=== PATIENT | female | born 1940 | race Hispanic/Latino ===

== ENCOUNTER 2022-03-31 22:32 | Emergency (ER) | payer OTHER ==
[~2022-03-31] VITALS: Ht 157.5 cm; Wt 61.2 kg
[2022-03-31 23:18] LABS: BASOPHILS % 0.2 % (0.0-1.0); HEMATOCRIT 34.5 % (34.2-44.1); HEMOGLOBIN 10.1 g/dL (12.0-16.0); LYMPHOCYTES # (AUTO) 1.2 (1.0-3.2); LYMPHOCYTES % 22.5 % (18.0-39.1); MEAN CORPUSCULAR HEMOGLOBIN 25.6 pg (28-32); MEAN CORPUSCULAR HGB CONC 29.3 g/dL (31-35); MEAN CORPUSCULAR VOLUME 87.6 fL (81-99); MONOCYTES # (AUTO) 0.1 (0.2-0.8); MONOCYTES % 2.6 % (4.4-11.3); NEUTROPHILS # (AUTO) 3.9 (2.1-6.9); NEUTROPHILS % 73.9 % (38.7-80.0); PLATELET COUNT 167 x10e3/uL (140-360); RED BLOOD COUNT 3.94 x10e6/uL (3.6-5.1); RED CELL DISTRIBUTION WIDTH 17.8 % (11.7-14.4)
[2022-03-31] MEDS ORDERED: CEFTRIAXONE 1 GM VIAL ONE (23:29)
[2022-03-31] MEDS: SODIUM CHLORIDE 0.9% 1000ML 1,000 ML IV ONE (23:29)
[2022-03-31 23:33] LABS: ALBUMIN 2.5 g/dL (3.5-5.0); ALBUMIN/GLOBULIN RATIO 1.1 (0.8-2.0); ANION GAP 14.9 mmol/L (8-16); CALCIUM 7.4 mg/dL (8.4-10.2); CREATININE, SERUM 0.83 mg/dL (0.57-1.11)
[2022-03-31 23:36] LABS: POTASSIUM 2.9 mmol/L (3.5-5.1)
[2022-03-31] MEDS: ONDANSETRON HCL INJ 2MG/ML 2ML 2 MG/ML VIAL IV STA (23:36)
[2022-03-31 23:39] LABS: CREATINE KINASE MB 0.2 ng/mL (0-5.0)
[2022-04-01] MEDS: ACETAMINOPHEN 325 MG TAB PO ONE (00:05)
[2022-04-01 00:24] LABS: BACTERIA,URINE MODERATE /HPF; CLARITY,URINE CLOUDY (CLEAR); COLOR,URINE YELLOW (YELLOW); EPITHELIAL CELLS,URINE FEW /LPF; KETONES,URINE NEGATIVE (NEGATIVE); LEUKOCYTE ESTERASE ,URINE 2+ (NEGATIVE); MUCUS,URINE FEW (RARE); NITRITE,URINE NEGATIVE (NEGATIVE); PROTEIN,URINE DIPSTICK 1+ (NEGATIVE); RBC,URINE 21-50 /HPF (0-5); URINE UROBILINOGEN 0.2 mg/dL (0.2 - 1); WBC,URINE (MAN) >50 /HPF (0-5)
[2022-04-01] MEDS ORDERED: POTASSIUM CHLORIDE 20 MEQ TAB CR PO STA (00:45)
[2022-04-01] MEDS ORDERED: CEFDINIR300 MG PO (00:46)
[2022-04-01] MEDS ORDERED: ONDANSETRON ODT4 MG PO (00:46)
== END 2022-04-01 01:04 | disposition home or self-care (01) ==
LOC: ER 22:35
DX: R50.9 Fever, unspecified (principal); N39.0 Urinary tract infection, site not specified; R11.2 Nausea with vomiting, unspecified; R19.7 Diarrhea, unspecified; Z20.822 Contact with and (suspected) exposure to COVID-19; Z85.3 Personal history of malignant neoplasm of breast; Z79.899 Other long term (current) drug therapy; C78.00 Secondary malignant neoplasm of unspecified lung; C79.51 Secondary malignant neoplasm of bone; R94.31 Abnormal electrocardiogram [ECG] [EKG]
CPT/HCPCS: 36415; 70450; 71045; 80053; 81001; 82550; 82553; 83605; 84484; 85025; 87040; 87071; 87086; 87186; 87205; 93005; 99284; J0696; J2405; J7030; U0002

== ENCOUNTER 2022-11-01 17:12 | Inpatient (IN) | payer MEDICARE, OTHER ==
[~2022-11-01] VITALS: Ht 157.5 cm; Wt 61.2 kg
[~2022-11-01 17:12] MED LIST: CEFDINIR300 MG PO; ONDANSETRON ODT4 MG PO
[2022-11-01 19:18] LABS: BASOPHILS % 0.2 % (0.0-1.0); EOSINOPHILS % 0.1 % (0.0-6.0); HEMATOCRIT 28.8 % (34.2-44.1); HEMOGLOBIN 9.2 g/dL (12.0-16.0); LYMPHOCYTES # (AUTO) 3.3 (1.0-3.2); MEAN CORPUSCULAR HGB CONC 31.9 g/dL (31-35); MEAN CORPUSCULAR VOLUME 78.3 fL (81-99); MONOCYTES # (AUTO) 1.2 (0.2-0.8); MONOCYTES % 6.1 % (4.4-11.3); NEUTROPHILS # (AUTO) 14.6 (2.1-6.9); NEUTROPHILS % 76.1 % (38.7-80.0); PLATELET COUNT 235 x10e3/uL (140-360); RED BLOOD COUNT 3.68 x10e6/uL (3.6-5.1); RED CELL DISTRIBUTION WIDTH 15.6 % (11.7-14.4)
[2022-11-01 19:37] LABS: ALBUMIN 2.6 g/dL (3.5-5.0); ALBUMIN/GLOBULIN RATIO 0.6 (0.8-2.0); ANION GAP 15.5 mmol/L (8-16); CALCIUM 8.6 mg/dL (8.4-10.2); CREATININE, SERUM 1.22 mg/dL (0.57-1.11); POTASSIUM 4.5 mmol/L (3.5-5.1)
[2022-11-01] MEDS ORDERED: IOPAMIDOL 370 MG/ML 100 ML INFUS..BTL INJ ONE (20:00)
[2022-11-01] MEDS ORDERED: SODIUM CHLORIDE 0.9% 1000ML 1,000 ML IV ONE (20:00)
[2022-11-01 20:02] LABS: CLARITY,URINE CLEAR (CLEAR); COLOR,URINE YELLOW (YELLOW); KETONES,URINE NEGATIVE (NEGATIVE); LEUKOCYTE ESTERASE ,URINE NEGATIVE (NEGATIVE); NITRITE,URINE NEGATIVE (NEGATIVE); PROTEIN,URINE DIPSTICK NEGATIVE (NEGATIVE); URINE UROBILINOGEN 0.2 mg/dL (0.2 - 1)
[2022-11-01 20:19] LABS: BACTERIA,URINE MODERATE /HPF; WBC,URINE (MAN) 0-5 /HPF (0-5)
[2022-11-01] MEDS ORDERED: ONDANSETRON HCL INJ 2MG/ML 2ML 2 MG/ML VIAL IV PRN (22:45)
[2022-11-01] MEDS ORDERED: DEXTROSE 50% SYRINGE 50 ML IV PRN (22:45)
[2022-11-01] MEDS: METRONIDAZOLE 500MG/NS 100ML 100 ML IV SCH (23:26)
[2022-11-01] MEDS: SODIUM CHLORIDE 0.9% 1000ML 1,000 ML IV SCH (23:26)
[2022-11-02] MEDS: SODIUM CHLORIDE 0.9% 1000ML 1,000 ML IV SCH ×2 (05:36→13:07)
[2022-11-02] MEDS: METRONIDAZOLE 500MG/NS 100ML 100 ML IV SCH ×3 (06:39→17:07)
[2022-11-02 06:44] LABS: BASOPHILS # (AUTO) 0.1 (0.0-0.1); BASOPHILS % 0.3 % (0.0-1.0); EOSINOPHILS % 0.1 % (0.0-6.0); HEMATOCRIT 26.2 % (34.2-44.1); HEMOGLOBIN 8.2 g/dL (12.0-16.0); LYMPHOCYTES % 15.8 % (18.0-39.1); MEAN CORPUSCULAR HEMOGLOBIN 24.8 pg (28-32); MEAN CORPUSCULAR HGB CONC 31.3 g/dL (31-35); MEAN CORPUSCULAR VOLUME 79.4 fL (81-99); MONOCYTES # (AUTO) 1.3 (0.2-0.8); MONOCYTES % 6.5 % (4.4-11.3); NEUTROPHILS # (AUTO) 14.8 (2.1-6.9); NEUTROPHILS % 76.7 % (38.7-80.0); PLATELET COUNT 209 x10e3/uL (140-360); RED CELL DISTRIBUTION WIDTH 15.6 % (11.7-14.4)
[2022-11-02 07:07] LABS: ALBUMIN 2.3 g/dL (3.5-5.0); ALBUMIN/GLOBULIN RATIO 0.6 (0.8-2.0); ANION GAP 14.8 mmol/L (8-16); CALCIUM 8.1 mg/dL (8.4-10.2); CREATININE, SERUM 1.15 mg/dL (0.57-1.11); POTASSIUM 3.8 mmol/L (3.5-5.1)
[2022-11-02] MEDS ORDERED: ACETAMINOPHEN 325 MG TAB PO PRN (08:15)
[2022-11-02] MEDS ORDERED: Morphine 2mg Syringe 2 MG/ML SYR IV PRN (08:15)
[2022-11-02] MEDS ORDERED: DEXTROSE 50% SYRINGE 50 ML IV PRN (08:15)
[2022-11-02 10:50] LABS: FERRITIN 361.22 ng/mL (4.63-204.00); THYROID STIMULATING HORMONE 3.488 uIU/mL (0.350-4.940)
[2022-11-02] MEDS: INSULIN LISPRO 100 UNIT/1 ML 3ML VIAL SQ SCH ×3 (11:30→21:11)
[2022-11-02 12:12] VITALS: BP 116/73; PULSE 94; RESP 20; TEMP 98.2; O2SAT 94
[2022-11-02 12:30] VITALS: BP 116/73; PULSE 94; RESP 20; TEMP 98.2; O2SAT 100
[2022-11-02 16:00] VITALS: BP 102/66; PULSE 82; RESP 19; TEMP 98.7; O2SAT 95
[2022-11-02 19:44] VITALS: BP 102/66; PULSE 82; RESP 19; TEMP 98.7; O2SAT 95
[2022-11-02 20:56] VITALS: BP_SYST 102; BP_SYST 103; BP_DIAS 66; BP_DIAS 67; PULSE 82; PULSE 93; RESP 16; RESP 19; TEMP 98.3; TEMP 98.7; O2SAT 100; O2SAT 95
[2022-11-03] VITALS (9 sets, daily range): BP systolic 97–114; BP diastolic 50–65; PULSE 81–91; RESP 16–20; TEMP 97.9–99.9; O2SAT 98–100
[2022-11-03] MEDS: METRONIDAZOLE 500MG/NS 100ML 100 ML IV SCH ×4 (00:18→17:19)
[2022-11-03] MEDS: SODIUM CHLORIDE 0.9% 1000ML 1,000 ML IV SCH ×3 (05:14→17:14)
[2022-11-03] MEDS: INSULIN LISPRO 100 UNIT/1 ML 3ML VIAL SQ SCH ×4 (07:30→21:00)
[2022-11-03 08:10] LABS: BASOPHILS % 0.2 % (0.0-1.0); EOSINOPHILS % 0.1 % (0.0-6.0); HEMATOCRIT 24.3 % (34.2-44.1); HEMOGLOBIN 7.6 g/dL (12.0-16.0); LYMPHOCYTES # (AUTO) 2.4 (1.0-3.2); LYMPHOCYTES % 15.1 % (18.0-39.1); MEAN CORPUSCULAR HEMOGLOBIN 24.9 pg (28-32); MEAN CORPUSCULAR HGB CONC 31.3 g/dL (31-35); MEAN CORPUSCULAR VOLUME 79.7 fL (81-99); MONOCYTES # (AUTO) 0.8 (0.2-0.8); MONOCYTES % 5.2 % (4.4-11.3); NEUTROPHILS # (AUTO) 12.6 (2.1-6.9); NEUTROPHILS % 78.8 % (38.7-80.0); RED BLOOD COUNT 3.05 x10e6/uL (3.6-5.1); RED CELL DISTRIBUTION WIDTH 15.9 % (11.7-14.4)
[2022-11-03 08:16] LABS: PLATELET COUNT 209 x10e3/uL (140-360)
[2022-11-03 08:24] LABS: ALBUMIN/GLOBULIN RATIO 0.6 (0.8-2.0); ANION GAP 13.4 mmol/L (8-16); CALCIUM 7.7 mg/dL (8.4-10.2); CREATININE, SERUM 1.01 mg/dL (0.57-1.11); MAGNESIUM 1.8 MG/DL (1.3-2.1); POTASSIUM 3.4 mmol/L (3.5-5.1)
[2022-11-03] MEDS ORDERED: POTASSIUM CHLORIDE 20 MEQ TAB CR PO ONE (11:07)
[2022-11-03] MEDS: Vancomycin IV 1 GM in SODIUM CHLORIDE 0.9% 250ML 250 ML IV SCH (14:19)
[2022-11-04] VITALS (7 sets, daily range): BP systolic 96–131; BP diastolic 61–73; PULSE 50–91; RESP 16–20; TEMP 97.3–99; O2SAT 95–100
[2022-11-04] MEDS: METRONIDAZOLE 500MG/NS 100ML 100 ML IV SCH ×3 (00:40→11:34)
[2022-11-04] MEDS: SODIUM CHLORIDE 0.9% 1000ML 1,000 ML IV SCH ×3 (00:40→15:17)
[2022-11-04] MEDS: Vancomycin IV 1 GM in SODIUM CHLORIDE 0.9% 250ML 250 ML IV SCH ×2 (01:41→15:17)
[2022-11-04] MEDS: INSULIN LISPRO 100 UNIT/1 ML 3ML VIAL SQ SCH ×4 (07:30→21:00)
[2022-11-04 08:27] LABS: BASOPHILS % 0.1 % (0.0-1.0); EOSINOPHILS % 0.1 % (0.0-6.0); HEMATOCRIT 24.3 % (34.2-44.1); HEMOGLOBIN 7.8 g/dL (12.0-16.0); LYMPHOCYTES # (AUTO) 2.8 (1.0-3.2); LYMPHOCYTES % 20.9 % (18.0-39.1); MEAN CORPUSCULAR HGB CONC 32.1 g/dL (31-35); MEAN CORPUSCULAR VOLUME 77.9 fL (81-99); MONOCYTES # (AUTO) 0.8 (0.2-0.8); MONOCYTES % 6.2 % (4.4-11.3); NEUTROPHILS # (AUTO) 9.7 (2.1-6.9); NEUTROPHILS % 72.3 % (38.7-80.0); PLATELET COUNT 205 x10e3/uL (140-360); RED BLOOD COUNT 3.12 x10e6/uL (3.6-5.1); RED CELL DISTRIBUTION WIDTH 16.1 % (11.7-14.4)
[2022-11-04 08:44] LABS: ANION GAP 13.1 mmol/L (8-16); CALCIUM 7.6 mg/dL (8.4-10.2); CREATININE, SERUM 0.91 mg/dL (0.57-1.11); MAGNESIUM 1.7 MG/DL (1.3-2.1); POTASSIUM 3.1 mmol/L (3.5-5.1)
[2022-11-04] MEDS: DICYCLOMINE HCL 10 MG CAP PO SCH ×3 (08:53→21:02)
[2022-11-04] MEDS: IRON SUCROSE 100 MG in SODIUM CHLORIDE 0.9% 100 ML IV SCH (09:30)
[2022-11-04] MEDS ORDERED: POTASSIUM CHLORIDE 20 MEQ TAB CR PO ONE (10:32)
[2022-11-04] MEDS ORDERED: ETOMIDATE 2 MG/ML 10 ML INJ IV ONE (12:01)
[2022-11-04] MEDS ORDERED: SUCCINYLCHOLINE CHLORIDE 20 MG/ML 10ML VIAL ONE (12:01)
[2022-11-05] VITALS (29 sets, daily range): BP systolic 41–138; BP diastolic 32–77; PULSE 30–98; RESP 12–71; TEMP 97.9–98.4; O2SAT 96–100
[2022-11-05] MEDS: Vancomycin IV 1 GM in SODIUM CHLORIDE 0.9% 250ML 250 ML IV SCH (01:15)
[2022-11-05 05:38] LABS: BASOPHILS % 0.2 % (0.0-1.0); EOSINOPHILS % 0.1 % (0.0-6.0); HEMATOCRIT 25.4 % (34.2-44.1); HEMOGLOBIN 7.9 g/dL (12.0-16.0); LYMPHOCYTES # (AUTO) 2.7 (1.0-3.2); LYMPHOCYTES % 19.6 % (18.0-39.1); MEAN CORPUSCULAR HEMOGLOBIN 24.6 pg (28-32); MEAN CORPUSCULAR HGB CONC 31.1 g/dL (31-35); MEAN CORPUSCULAR VOLUME 79.1 fL (81-99); MONOCYTES # (AUTO) 0.6 (0.2-0.8); MONOCYTES % 4.5 % (4.4-11.3); NEUTROPHILS # (AUTO) 10.3 (2.1-6.9); NEUTROPHILS % 74.9 % (38.7-80.0); PLATELET COUNT 189 x10e3/uL (140-360); RED BLOOD COUNT 3.21 x10e6/uL (3.6-5.1); RED CELL DISTRIBUTION WIDTH 16.4 % (11.7-14.4)
[2022-11-05 06:06] LABS: ALBUMIN 2.1 g/dL (3.5-5.0); ALBUMIN/GLOBULIN RATIO 0.7 (0.8-2.0); ANION GAP 13.5 mmol/L (8-16); CALCIUM 7.6 mg/dL (8.4-10.2); CREATININE, SERUM 0.93 mg/dL (0.57-1.11); MAGNESIUM 1.6 MG/DL (1.3-2.1); POTASSIUM 3.5 mmol/L (3.5-5.1)
[2022-11-05] MEDS: SODIUM CHLORIDE 0.9% 1000ML 1,000 ML IV SCH ×3 (06:21→18:15)
[2022-11-05] MEDS: INSULIN LISPRO 100 UNIT/1 ML 3ML VIAL SQ SCH ×4 (08:39→20:44)
[2022-11-05] MEDS: DICYCLOMINE HCL 10 MG CAP PO SCH ×3 (08:42→20:25)
[2022-11-05] MEDS: IRON SUCROSE 100 MG in SODIUM CHLORIDE 0.9% 100 ML IV SCH (08:44)
[2022-11-05 11:13] LABS: INR 1.37; PROTHROMBIN TIME 17.6 seconds (11.9-14.5)
[2022-11-05 11:14] LABS: PARTIAL THROMBOPLASTIN TIME 34.2 seconds (23.8-35.5)
[2022-11-05] MEDS ORDERED: MAGNESIUM SULFATE 2GM/50ML 50 ML IV ONE ×2 (11:15→16:30)
[2022-11-05] MEDS ORDERED: CLINDAMYCIN 600MG / 50ML 50 ML IV PRN (13:00)
[2022-11-05] MEDS ORDERED: Vancomycin IV 1 GM in SODIUM CHLORIDE 0.9% 250ML 250 ML IV SCH (13:00)
[2022-11-05] MEDS ORDERED: SODIUM BICARBONATE 8.4% INJ 50 ML SYR ONE (13:48)
[2022-11-05] MEDS ORDERED: DEXTROSE 5% 250 ML BAG IV ONE (13:48)
[2022-11-05] MEDS ORDERED: EPINEPHRINE HCL SYRINGE ONE ×2 (13:48→22:49)
[2022-11-05] MEDS ORDERED: EPINEPHRINE HCL 1:1000 1ML 1 MG/ML AMP ONE ×2 (13:48→22:46)
[2022-11-05] MEDS ORDERED: NITROGLYCERIN 0.4 MG SUBL SL PRN (21:30)
[2022-11-05] MEDS ORDERED: SODIUM BICARBONATE 8.4% SYRING 100 ML ONE (22:17)
[2022-11-05] MEDS ORDERED: DEXTROSE 5% IV ONE (22:46)
[2022-11-06 02:15] LABS: ABG HCO3 15 mmol/L (22-26); ABG PCO2 40 mmHg (35-45); ABG PH 7.18 (7.35-7.45); ABG PO2 86 mmHg (80-105); ABG TCO2 16
== END 2022-11-05 23:00 | disposition expired | DRG 871 ==
LOC: ER 19:21 → ERHOLD 22:33 → MED/SURG3 11-02 12:12 → ICU 11-05 17:39
PROVIDERS: ADMIT Internal Medicine; ATTEND Internal Medicine
PROC: 3E03329 Introduction of Other Anti-infective into Peripheral Vein, Percutaneous Approach (ICD-10-PCS; 2022-11-01)
PROC: 5A1935Z Respiratory Ventilation, Less than 24 Consecutive Hours (ICD-10-PCS; principal; 2022-11-05)
PROC: 5A12012 Performance of Cardiac Output, Single, Manual (ICD-10-PCS; 2022-11-05)
PROC: 3E033XZ Introduction of Vasopressor into Peripheral Vein, Percutaneous Approach (ICD-10-PCS; 2022-11-05)
PROC: 0BH17EZ Insertion of Endotracheal Airway into Trachea, Via Natural or Artificial Opening (ICD-10-PCS; 2022-11-05)
DX: A41.2 Sepsis due to unspecified staphylococcus (principal); J96.90 Respiratory failure, unspecified, unspecified whether with hypoxia or hypercapnia; E87.1 Hypo-osmolality and hyponatremia; C78.00 Secondary malignant neoplasm of unspecified lung; C79.51 Secondary malignant neoplasm of bone; I44.2 Atrioventricular block, complete; K51.30 Ulcerative (chronic) rectosigmoiditis without complications; C50.919 Malignant neoplasm of unspecified site of unspecified female breast; E11.42 Type 2 diabetes mellitus with diabetic polyneuropathy; I46.9 Cardiac arrest, cause unspecified; I44.1 Atrioventricular block, second degree; I05.0 Rheumatic mitral stenosis; M10.9 Gout, unspecified; K21.9 Gastro-esophageal reflux disease without esophagitis; E03.9 Hypothyroidism, unspecified; E78.5 Hyperlipidemia, unspecified; D72.829 Elevated white blood cell count, unspecified; D64.9 Anemia, unspecified; I10 Essential (primary) hypertension; R41.0 Disorientation, unspecified; J03.90 Acute tonsillitis, unspecified; F03.90 Unspecified dementia, unspecified severity, without behavioral disturbance, psychotic disturbance, mood disturbance, and anxiety; F32.A Depression, unspecified; F41.9 Anxiety disorder, unspecified; R53.1 Weakness; E86.0 Dehydration; K52.9 Noninfective gastroenteritis and colitis, unspecified; Z95.3 Presence of xenogenic heart valve; Z20.822 Contact with and (suspected) exposure to COVID-19
CPT/HCPCS: 31500; 36415; 51700; 70450; 71045; 74177; 80048; 80053; 80202; 81001; 82607; 82728; 82805; 82948; 83036; 83540; 83605; 83630; 83690; 83735; 83993; 84443; 84466; 85025; 85610; 85730; 87040; 87045; 87071; 87177; 87205; 87324; 87328; 87449; 92523; 92950; 93005; 93306; 94002; 94799; 96360; 99284; J0171; J0330; J1756; J2543; J3475; J7030; J7050; Q9967